=== PATIENT | male | born 1960 | race Caucasian/White ===

== ENCOUNTER 2018-12-26 09:32 | Emergency (ER) | payer OTHER ==
[~2018-12-26] VITALS: Ht 175.3 cm; Wt 99.8 kg
[2018-12-26] MEDS ORDERED: NS IV 1000 ML 1,000 ML IV STA (09:46)
[2018-12-26 09:52] LABS: BASOPHILS % (AUTO) 0 % (0-10); EOSINOPHILS # (AUTO) 0.1 10^3/uL (0.0-0.3); EOSINOPHILS % (AUTO) 1 % (0-10); HEMATOCRIT 43 % (40-54); HEMOGLOBIN 14.4 G/DL (13.3-17.7); LYMPHOCYTES % (AUTO) 11 % (12-44); MEAN CORPUSCULAR HEMOGLOBIN 30 PG (25-34); MEAN CORPUSCULAR HGB CONC 33 G/DL (32-36); MEAN CORPUSCULAR VOLUME 90 FL (80-99); MEAN PLATELET VOLUME 10.5 FL (7.4-10.4); MONOCYTES # (AUTO) 0.9 X 10^3 (0.0-1.0); MONOCYTES % (AUTO) 10 % (0-12); NEUTROPHILS # (AUTO) 6.5 X 10^3 (1.8-7.8); NEUTROPHILS % (AUTO) 77 % (42-75); PLATELET COUNT 260 10^3/uL (130-400); RED CELL DISTRIBUTION WIDTH 13.3 % (10.0-14.5); WHITE BLOOD COUNT 8.4 10^3/uL (4.3-11.0)
[2018-12-26 09:55] LABS: BILIRUBIN,URINE NEGATIVE (NEGATIVE); CLARITY,URINE CLEAR; COLOR,URINE YELLOW; GLUCOSE, URINE (UA) NEGATIVE (NEGATIVE); KETONES,URINE NEGATIVE (NEGATIVE); LEUKOCYTE ESTERASE ,URINE 1+ (NEGATIVE); NITRITE,URINE NEGATIVE (NEGATIVE); PH,URINE 5 (5-9); PROTEIN,URINE 2+ (NEGATIVE); UROBILINOGEN,URINE NORMAL (NORMAL)
[2018-12-26] MEDS ORDERED: KETOROLAC 30 MG/ML VIAL IVP STA (09:57)
[2018-12-26] MEDS ORDERED: fentaNYL INJECTION 100 MCG/2 ML AMP IVP STA (09:57)
[2018-12-26] MEDS ORDERED: ONDANSETRON 4 MG/2 ML (SDV) Z0FRAN IVP ONE (10:00)
[2018-12-26 10:04] LABS: AMORPHOUS SEDIMENT,UR RARE AMOR URATES /LPF; BACTERIA,URINE TRACE /HPF; RBC,URINE >100 /HPF; SQUAMOUS EPITHELIAL CELL,UR 0-2 /HPF; WBC,URINE 0-2 /HPF
--- NOTE | 2018-12-26 10:04 | ED Abdominal Pain ---
General Chief Complaint: Abdominal/GI Problems Stated Complaint: ABD PAIN Nursing Triage Note: Patient ambulatory to ER with spouse with complaint of right lower quadrant abdominal pain that began this morning upon waking up. Patient describes the pain as sharp. Patient states he has had one episode of vomiting this morning. Sepsis Screen: No Definite Risk Source of Information: Patient Exam Limitations: No Limitations History of Present Illness Date Seen by Provider: Dec 26, 2018 Time Seen by Provider: 09:45 Initial Comments Here with right lower quadrant abdominal pain onset this morning a few hours ago when he woke up. Pain has persisted. Does state that it radiates down to his groin. States that he is urinating less. No problems with bowel movements. Denies blood in the stool or urine. Denies blood in his vomit as he vomited one time. Has had one cup of coffee this morning but otherwise has not ate or drink anything. Denies fevers. Timing/Duration: 1-3 Hours Severity/Quality: Moderate Location: RLQ Radiation: Groin Activities at Onset: None Modifying Factors: Worsens With Movement; Improves With Resting Associated Symptoms: No Back Pain, No Chest Pain, No Fever/Chills; Nausea/Vomiting; No Shortness of Air Allergies and Home Medications Allergies Coded Allergies: No Known Drug Allergies (Unverified , 12/26/18) Home Medications Lisinopril 20 Mg Tablet, 20 MG PO DAILY, (Reported) Patient Home Medication List Home Medication List Reviewed: Yes Review of Systems Review of Systems Constitutional: no symptoms reported EENTM: No Symptoms Reported Respiratory: No Symptoms Reported Cardiovascular: No Symptoms Reported Gastrointestinal: See HPI, Abdominal Pain, Nausea, Vomiting Genitourinary: No Symptoms Reported Musculoskeletal: no symptoms reported Skin: No lesions, No rash Psychiatric/Neurological: No Symptoms Reported All Other Systems Reviewed Negative Unless Noted: Yes Past Esfiunb-Xqjplr-Vniwgb Hx Past Med/Social Hx: Reviewed Nursing Past Med/Soc Hx Patient Social History Alcohol Use: Regular Use Number of Drinks Today: 0 Alcohol Beverage of Choice: Beer Recreational Drug Use: No Type Used: Smokeless Tobacco 2nd Hand Smoke Exposure: No Recent Foreign Travel: No Contact w/Someone Who Travel: No Recent Infectious Disease Expo: No Physical Abuse: No Sexual Abuse: No Mistreated: No Fear: No Past Medical History Surgeries: No Respiratory: No Neurological: No Family Medical History Reviewed Nursing Family Hx Physical Exam Vital Signs Vital Signs - First Documented 12/26/18 09:32 Temp 96.2 Pulse 66 Resp 16 B/P (MAP) 159/108 (125) Pulse Ox 97 O2 Delivery Room Air Capillary Refill : Less Than 3 Seconds Height/Weight/BMI Height: 5'9.00" Weight: 220lbs. oz. 99.986075ei; BMI Method:Actual General Appearance: WD/WN, mild distress HEENT: PERRL/EOMI, pharynx normal Neck: full range of motion, supple Respiratory: lungs clear, normal breath sounds Cardiovascular: regular rate, rhythm, no murmur Gastrointestinal: soft, guarding (Right Lower quadrant), tenderness Extremities: non-tender, normal inspection Back: normal inspection, no CVA tenderness, no vertebral tenderness Neurologic/Psychiatric: alert, oriented x 3 Skin: normal color, warm/dry Progress/Results/Core Measures Results/Orders Lab Results Laboratory Tests Test 12/26/18 09:40 12/26/18 09:41 Range/Units Urine Color YELLOW Urine Clarity CLEAR Urine pH 5 5-9 Urine Specific [place] 1.030 H 1.016-1.022 Urine Protein 2+ H NEGATIVE Urine Glucose (UA) NEGATIVE NEGATIVE Urine Ketones NEGATIVE NEGATIVE Urine Nitrite NEGATIVE NEGATIVE Urine Bilirubin NEGATIVE NEGATIVE Urine Urobilinogen NORMAL NORMAL MG/DL Urine Leukocyte Esterase 1+ H NEGATIVE Urine RBC (Auto) 5+ H NEGATIVE Urine RBC >100 H /HPF Urine WBC 0-2 /HPF Urine Squamous Epithelial Cells 0-2 /HPF Urine Crystals PRESENT H /LPF Urine Amorphous Sediment RARE BAENA URATES H /LPF Urine Bacteria TRACE /HPF Urine Casts NONE /LPF Urine Mucus MODERATE H /LPF Urine Culture Indicated NO White Blood Count 8.4 4.3-11.0 10^3/uL Red Blood Count 4.81 4.35-5.85 10^6/uL Hemoglobin 14.4 13.3-17.7 G/DL Hematocrit 43 40-54 % Mean Corpuscular Volume 90 80-99 FL Mean Corpuscular Hemoglobin 30 25-34 PG Mean Corpuscular Hemoglobin Concent 33 32-36 G/DL Red Cell Distribution Width 13.3 10.0-14.5 % Platelet Count 260 130-400 10^3/uL Mean Platelet Volume 10.5 H 7.4-10.4 FL Neutrophils (%) (Auto) 77 H 42-75 % Lymphocytes (%) (Auto) 11 L 12-44 % Monocytes (%) (Auto) 10 0-12 % Eosinophils (%) (Auto) 1 0-10 % Basophils (%) (Auto) 0 0-10 % Neutrophils # (Auto) 6.5 1.8-7.8 X 10^3 Lymphocytes # (Auto) 1.0 1.0-4.0 X 10^3 Monocytes # (Auto) 0.9 0.0-1.0 X 10^3 Eosinophils # (Auto) 0.1 0.0-0.3 10^3/uL Basophils # (Auto) 0.0 0.0-0.1 10^3/uL Sodium Level 137 135-145 MMOL/L Potassium Level 3.9 3.6-5.0 MMOL/L Chloride Level 105 98-107 MMOL/L Carbon Dioxide Level 21 21-32 MMOL/L Anion Gap 11 5-14 MMOL/L Blood Urea Nitrogen 18 7-18 MG/DL Creatinine 1.20 0.60-1.30 MG/DL Estimat Glomerular Filtration Rate > 60 BUN/Creatinine Ratio 15 Glucose Level 127 H 70-105 MG/DL Calcium Level 9.6 8.5-10.1 MG/DL Corrected Calcium 8.5-10.1 MG/DL Total Bilirubin 0.9 0.1-1.0 MG/DL Aspartate Amino Transf (AST/SGOT) 14 5-34 U/L Alanine Aminotransferase (ALT/SGPT) 19 0-55 U/L Alkaline Phosphatase 88 40-136 U/L C-Reactive Protein High Sensitivity 0.23 0.00-0.50 MG/DL Total Protein 7.8 6.4-8.2 GM/DL Albumin 4.6 H 3.2-4.5 GM/DL My Orders Orders - BRIAN WILLSON MD Cbc With Automated Diff (12/26/18 09:46) Comprehensive Metabolic Panel (12/26/18 09:46) Hs C Reactive Protein (12/26/18 09:46) Ua Culture If Indicated (12/26/18 09:46) Ondansetron Injection (Zofran Injectio (12/26/18 10:00) Ns Iv 1000 Ml (Sodium Chloride 0.9%) (12/26/18 09:46) Ed Iv/Invasive Line Start (12/26/18 09:46) Fentanyl Injection (Sublimaze Injection (12/26/18 09:57) Ketorolac Injection (Toradol Injection) (12/26/18 09:57) Ct Abd/Pelvis Wo(Kidney Stone) (12/26/18 10:12) Abdomen/Kub 1view (12/26/18 10:52) Medications Given in ED Current Medications Medications Dose Ordered Sig/Praveen Route Start Time Stop Time Status Last Admin Dose Admin Ondansetron HCl 4 mg ONCE ONCE IVP 12/26/18 10:00 12/26/18 10:01 DC 12/26/18 09:58 4 MG Vital Signs/I&O 12/26/18 09:32 Temp 96.2 Pulse 66 Resp 16 B/P (MAP) 159/108 (125) Pulse Ox 97 O2 Delivery Room Air Blood Pressure Mean: 125 Progress Progress Note : Progress Note Seen and evaluated. IV, labs, UA, normal saline 1 L bolus, Zofran 4 mg IV, Toradol 30 mg IV and fentanyl 50 g IV ordered. Anticipate CT scan pending UA results. Monitor patient. 1104: CT does show 4 mm stone right mid/distal ureter. Pain is controlled. No findings of infection. We will go ahead and get x-ray of the abdomen and repair for discharge home. Patient feels much more comfortable and feels he can tolerate home now. Discharge home with return precautions. Patient and family verbalize understanding instructions and agreement with plan. Diagnostic Imaging Diagonstic Imaging: CT Plain Films/CT/US/NM/MRI: abdomen, pelvis Comments [facility], [place] NAME: ARELY VELAZCO [facility] REC#: [id number] PT STATUS: REG ER : 1960 PHYSICIAN: BRIAN WILLSON MD ADMIT DATE: 12/26/18/ER Draft Date of Exam:12/26/18 CT ABD/PELVIS WO(KIDNEY STONE) PROCEDURE: CT urinary tract, rule out kidney stone. TECHNIQUE: Multiple contiguous axial images were obtained through the abdomen and pelvis without the use of intravenous contrast. Auto Exposure Controls were utilized during the CT exam to meet ALARA standards for radiation dose reduction. INDICATION: Right lower quadrant abdominal pain that began this morning. COMPARISON: There are no prior studies available for comparison. FINDINGS: Imaging through the lung bases does show multiple tiny subpleural nodules in the bilateral lower lobes. A nodule on the left is approximately 4 mm. Numerous additional 2-3 mm nodules are also present. No discrete liver mass is identified. The gallbladder is unremarkable. No biliary ductal dilatation is seen. The pancreas and spleen are unremarkable. No adrenal mass is detected. The left kidney is unremarkable. The right kidney does show some perinephric inflammatory stranding. There is also hydroureteronephrosis. The dilated right ureter is traced into the upper to mid pelvis where there is an approximately 4 mm calculus. The ureter distal to this level is of normal caliber. No bladder calculi are seen. The left ureter is unremarkable. The aorta is nonaneurysmal. The bowel loops are of normal caliber. There is no ascites. The bony structures are nonacute. IMPRESSION: 1. There is a 4 mm calculus in the mid to distal right ureter producing moderate hydroureteronephrosis. 2. There are bibasilar subpleural pulmonary micronodules, stable when compared to the prior CT chest dating back to 2010. Dictated on workstation # [id number] Dict: 12/26/18 1034 Trans: 12/26/18 1047 [id number] Interpreted by: LORRAINE SONG MD Electronically signed by: Reviewed: Reviewed by Me Departure Impression Primary Impression: Right ureteral stone Disposition: 01 HOME, SELF-CARE Condition: Improved Departure-Patient Inst. Decision time for Depature: 11:07 Referrals: URI DA SILVA MD (PCP) Primary Care Physician RONALD MEDINA MD Patient Instructions: Kidney Stones (DC) Add. Discharge Instructions: All discharge instructions reviewed with patient and/or family. Voiced understanding. Drink plenty of fluids. You may take ibuprofen 800 mg every 8 hours as needed for pain and you should do that scheduled for 3 days and then as needed thereafter. Call and make appointment with Dr. Medina. You may take the prescribed pain medicine or you may take Tylenol/acetaminophen 1000 mg every 8 hours as needed for pain. Do not take both at the same time as they both have acetaminophen). Do not exceed 4000 mg of acetaminophen in 24 hours. Return for worse pain, fever, vomiting, weakness, breathing problems or other concerns as needed. Scripts Hydrocodone Bit/Acetaminophen (Hydrocodone/Acetaminophen 5/325mg Tablet) 1 Tab Tab 1 EACH PO Q4-6HR PRN for PAIN-MODERATE MDD 10 for 3 Days, #10 TAB 0 Refills Prov: BRIAN WILLSON MD 12/26/18 Cephalexin (Cephalexin) 500 Mg Tablet 500 MG PO BID, #14 TAB 0 Refills Prov: BRIAN WILLSON MD 12/26/18 Copy Copies To 1: RONALD MEDINA MD, TIMOTHY D MD Dec 26, 2018 10:04
[2018-12-26] MEDS ORDERED: LISI20TA PO (10:11)
--- NOTE | 2018-12-26 10:12 | NUR ---
After Fentanyl given patient is sleeping. Oxygen saturation 86% on room air. Patient placed on oxygen at 2 LPM via nasal cannula and oxygen saturation rises to 97%.
[2018-12-26 10:15] LABS: ALANINE AMINOTRANSFERASE 19 U/L (0-55); ALBUMIN 4.6 GM/DL (3.2-4.5); ALKALINE PHOSPHATASE 88 U/L (40-136); BILIRUBIN,TOTAL 0.9 MG/DL (0.1-1.0); BUN/CREATININE RATIO 15; CALCIUM 9.6 MG/DL (8.5-10.1); CARBON DIOXIDE 21 MMOL/L (21-32); CHLORIDE 105 MMOL/L (98-107); GFR ESTIMATED > 60; GLUCOSE 127 MG/DL (70-105); POTASSIUM 3.9 MMOL/L (3.6-5.0); SODIUM 137 MMOL/L (135-145); TOTAL PROTEIN 7.8 GM/DL (6.4-8.2)
--- NOTE | 2018-12-26 10:33 | NUR ---
Patient denies any pain. He is resting quietly in bed. Spouse at bedside.
--- NOTE | 2018-12-26 10:47 | Diagnostic Imaging Report ---
PROCEDURE: CT urinary tract, rule out kidney stone. TECHNIQUE: Multiple contiguous axial images were obtained through the abdomen and pelvis without the use of intravenous contrast. Auto Exposure Controls were utilized during the CT exam to meet ALARA standards for radiation dose reduction. INDICATION: Right lower quadrant abdominal pain that began this morning. COMPARISON: There are no prior studies available for comparison. FINDINGS: Imaging through the lung bases does show multiple tiny subpleural nodules in the bilateral lower lobes. A nodule on the left is approximately 4 mm. Numerous additional 2-3 mm nodules are also present. No discrete liver mass is identified. The gallbladder is unremarkable. No biliary ductal dilatation is seen. The pancreas and spleen are unremarkable. No adrenal mass is detected. The left kidney is unremarkable. The right kidney does show some perinephric inflammatory stranding. There is also hydroureteronephrosis. The dilated right ureter is traced into the upper to mid pelvis where there is an approximately 4 mm calculus. The ureter distal to this level is of normal caliber. No bladder calculi are seen. The left ureter is unremarkable. The aorta is nonaneurysmal. The bowel loops are of normal caliber. There is no ascites. The bony structures are nonacute. IMPRESSION: 1. There is a 4 mm calculus in the mid to distal right ureter producing moderate hydroureteronephrosis. 2. There are bibasilar subpleural pulmonary micronodules, stable when compared to the prior CT chest dating back to 2010. Dictated by: Dictated on workstation # [id number]
[2018-12-26] MEDS ORDERED: ACHD5005 PO (11:10)
[2018-12-26] MEDS ORDERED: CEPH500T PO (11:10)
[2018-12-26 11:32] VITALS: BP 103/65
--- NOTE | 2018-12-26 11:32 | Diagnostic Imaging Report ---
INDICATION: Right-sided kidney stone. TIME OF EXAM: 11:17 a.m. COMPARISON: Correlation is made with CT performed earlier same day. FINDINGS: Right ureteral calculus is difficult to see on plain film. This calculus overlies the right portion of the sacrum on recent CT. No other radiopaque urinary tract calculi are seen. Bowel gas pattern is unremarkable. IMPRESSION: Right ureteral calculus noted on CT is difficult to visualize radiographically due to overlying structures. No other abnormality is seen. Dictated by: Dictated on workstation # [id number]
--- NOTE | 2018-12-26 11:33 | NUR ---
Patient given urine strainer, urinal and sterile specimen cup with instructions to strain urine to catch the stone. Patient verbalized understanding.
== END 2018-12-26 11:34 | disposition home or self-care (01) ==
LOC: EDUNIT# 09:32 → ER 09:33
DX: N13.2 Hydronephrosis with renal and ureteral calculous obstruction (principal)
CPT/HCPCS: 36415; 74018; 74176; 80053; 81000; 85025; 86141

== ENCOUNTER 2018-12-28 08:23 | Outpatient (RCR) | payer OTHER | END 2018-12-29 08:00 | disposition home or self-care (01) | PROVIDERS: ATTEND Nurse Practitioner Family | DX: M75.01 Adhesive capsulitis of right shoulder (principal); Z98.890 Other specified postprocedural states ==

== ENCOUNTER → 2018-12-28 | Outpatient (CLI) | payer OTHER ==
[~2018-12-28] MED LIST: ACHD5005 PO; CEPH500T PO; LISI20TA PO
--- NOTE | 2018-12-28 15:53 | Diagnostic Imaging Report ---
INDICATION: Right ureteral stone. Correlation is made with prior exam from 12/26/2018. FINDINGS: Bowel gas pattern is unremarkable. Right ureteral calculus noted on CT is not appreciated on plain film. No urinary tract calculi are detected. IMPRESSION: No definite radiopaque urinary tract calculi are identified. Dictated by: Dictated on workstation # [id number]
== END ==
LOC: RAD 15:23
PROVIDERS: ATTEND Urology
DX: N20.1 Calculus of ureter (principal)
CPT/HCPCS: 74018

== ENCOUNTER → 2019-01-17 | Outpatient (CLI) | payer OTHER ==
[~2019-01-17] MED LIST changes: +LOSA100T57 PO
== END ==
LOC: CARD 07:06
PROVIDERS: ATTEND Family Medicine
DX: Z82.49 Family history of ischemic heart disease and other diseases of the circulatory system (principal)
CPT/HCPCS: 93017

== ENCOUNTER 2019-02-03 09:18 | Outpatient (RCR) | payer BC ==
[~2019-02-03 09:18] MED LIST changes: -LOSA100T57 PO
[2019-02-03] MEDS ORDERED: LOSA100T57 PO (12:38)
== END 2019-02-03 14:41 | disposition home or self-care (01) ==
PROVIDERS: ATTEND Nurse Practitioner Family
DX: Z98.890 Other specified postprocedural states (principal)

== ENCOUNTER 2019-02-03 12:00 | Outpatient (CLI) | payer OTHER ==
[~2019-02-03] VITALS: Ht 175.3 cm; Wt 99.8 kg
[2019-02-03] MEDS ORDERED: LOSA100T57 PO (12:38)
== END 2019-02-03 13:03 | disposition home or self-care (01) ==
LOC: PREOP 13:03
PROVIDERS: ATTEND Surgery
DX: Z01.818 Encounter for other preprocedural examination (principal)

== ENCOUNTER 2019-02-07 07:00 | Day surgery (SDC) | payer OTHER ==
[~2019-02-07] VITALS: Ht 175.3 cm; Wt 99.8 kg
[~2019-02-07 07:00] MED LIST changes: +LACTATED RINGERS 1,000 ML IV ONE; +LOSA100T57 PO
[2019-02-07] MEDS ORDERED: ceFAZolin 2 GM/50 ML NS 50 ML ONE (07:19)
[2019-02-07] MEDS ORDERED: MIDAZOLAM 2 MG/2 ML (VERSED) VIAL ONE (07:25)
[2019-02-07] MEDS ORDERED: proPOfol 200 MG/20 ML (DIPRIVAN) VIAL IV ONE ×2 (07:25→08:20)
[2019-02-07] MEDS ORDERED: LACTATED RINGERS 1,000 ML IV STA (07:32)
[2019-02-07 07:36] VITALS: BP 115/64
[2019-02-07] MEDS ORDERED: CATHETER FLUSH 10 ML SYR IV PRN (07:45)
[2019-02-07] MEDS ORDERED: ANCEF 2 GM/NS 50 ML IVPB IV ONE (07:45)
--- NOTE | 2019-02-07 08:07 | Progress Note-Pre Operative ---
Pre-Operative Progress Note H&P Reviewed The H&P was reviewed, patient examined and no changes noted. Date Seen by Provider: Feb 07, 2019 Time Seen by Provider: 07:31 Date H&P Reviewed: Feb 07, 2019 Time H&P Reviewed: 07:31 Pre-Operative Diagnosis: screening colonoscopy ALAN RICHARDSON DO Feb 07, 2019 08:07
[2019-02-07 08:30] VITALS: BP 126/71
--- NOTE | 2019-02-07 08:33 | Progress Note-Post Operative ---
Post-Operative Progess Note Surgeon (s)/Satin Finisher (s) Surgeon ALAN RICHARDSON DO Satin Finisher: na Pre-Operative Diagnosis screening colonoscopy Post-Operative Diagnosis colon polyps Procedure & Operative Findings Date of Procedure 02/07/19 Procedure Performed/Findings colonoscopy c snare polypectomy x 2 and hot bx polypectomy x 1 Anesthesia Type per mda Estimated Blood Loss Estimated blood loss (mL): none Specimens/Packing Specimens Removed colon polyps x 3 ALAN RICHARDSON DO Feb 07, 2019 08:32
--- NOTE | 2019-02-07 08:38 | Discharge Inst-Simple/Standard ---
Discharge Inst-Standard Patient Instructions/Follow Up Plan of Care/Instructions/FU: 2 weeks Kristine Activity as Tolerated: Yes Discharge Diet: Regular Diet ALAN RICHARDSON DO Feb 07, 2019 08:38
[2019-02-07 09:00] VITALS: BP 127/84
[2019-02-07 09:15] VITALS: BP 127/84
--- NOTE | 2019-02-07 09:56 | Anesthesia-General Post-Op ---
MAC Patient Condition Mental Status/LOC: Same as Preop Cardiovascular: Satisfactory Nausea/Vomiting: Absent Respiratory: Satisfactory Pain: Controlled Complications: Absent Post Op Complications Complications None Follow Up Care/Instructions Patient Instructions None needed. Anesthesiology Discharge Order Discharge Order Patient is doing well, no complaints, stable vital signs, no apparent adverse anesthesia problems. No complications reported per nursing. FABIAN OWUSU CRNA Feb 07, 2019 09:56
--- NOTE | 2019-02-07 13:49 | OPERATIVE REPORT ---
DATE OF SERVICE: 02/07/2019 PREOPERATIVE DIAGNOSIS: Screening colonoscopy. POSTOPERATIVE DIAGNOSIS: Colon polyps. PROCEDURE PERFORMED: Colonoscopy with snare polypectomy x2 and hot biopsy polypectomy x2. SURGEON: Alan Carmona DO ANESTHESIA: Per MDA. ESTIMATED BLOOD LOSS: None. COMPLICATIONS: None. INDICATIONS: The patient is a 58-year-old male, needing screening colonoscopy. He understands risks and benefits of procedure and wished to proceed with procedure. Consent was signed in the chart. DESCRIPTION OF PROCEDURE: The patient was taken to the endoscopy suite, placed in left lateral recumbent position. Timeout was performed. Rectal exam was performed. There were no palpable polyps, mass or ulcerations. The scope was inserted in the rectum, advanced all the way to the cecum with minimal difficulty. Prep was adequate. Scope was then slowly retracted back. There were no polyps, mass or ulceration of the cecum. In the ascending colon, a small polyp was present, which snare polypectomy was performed. Scope was continued to be slowly retracted back. There were no other polyps, masses or ulcerations within the remainder of the ascending, transverse colon. In the descending colon, there were 2 small polyps, which hot biopsy polypectomy was performed. These were obtained in the same specimen cup. Scope was then continuously retracted back. There were no polyps, masses or ulcerations within the remainder of the descending and sigmoid colon. In the rectum, there was another small polyp, which snare polypectomy was performed. Scope was then continuously retracted back further in the rectum and then retroflexed. No other pathology noted. Scope was returned to its normal position, slowly withdrawn until completely removed. The patient tolerated procedure well without any complications, taken to recovery room in stable condition. RECOMMENDATIONS: The patient will need repeat colonoscopy in 5 years. Any issues before that can be seen at that time and follow up on pathology in 2 weeks. Job ID: [id number] DocumentID: [id number] Dictated Date: 02/07/2019 08:37:02 Spar Machine Operator Helper Date: 02/07/2019 13:48:47 Dictated By: ALAN CARMONA DO [facility]ITAL[facility]
== END 2019-02-07 09:15 | disposition home or self-care (01) ==
LOC: ENDO 07:00
PROVIDERS: ATTEND Surgery
DX: Z12.11 Encounter for screening for malignant neoplasm of colon (principal); D12.2 Benign neoplasm of ascending colon; K63.5 Polyp of colon; I10 Essential (primary) hypertension; F17.290 Nicotine dependence, other tobacco product, uncomplicated; Z68.33 Body mass index [BMI] 33.0-33.9, adult; Z79.899 Other long term (current) drug therapy; Z82.49 Family history of ischemic heart disease and other diseases of the circulatory system; Z83.42 Family history of familial hypercholesterolemia

== ENCOUNTER 2022-09-25 09:08 | Outpatient (RCR) | payer BC ==
[~2022-09-25 09:08] MED LIST changes: -LACTATED RINGERS 1,000 ML IV ONE
== END 2022-09-27 | disposition home or self-care (01) ==
PROVIDERS: ATTEND Orthopaedic Surgery
DX: M17.11 Unilateral primary osteoarthritis, right knee (principal); I10 Essential (primary) hypertension; Z96.651 Presence of right artificial knee joint

== ENCOUNTER → 2022-10-28 | Outpatient (RCR) | payer BC ==
[~2022-10-28] MED LIST changes: -LOSA100T57 PO; +LOSA100T58 PO
== END | disposition home or self-care (01) ==
PROVIDERS: ATTEND Orthopaedic Surgery
DX: Z47.1 Aftercare following joint replacement surgery (principal); I10 Essential (primary) hypertension; Z96.651 Presence of right artificial knee joint

== ENCOUNTER 2022-10-30 10:42 | Outpatient (RCR) | payer BC ==
[~2022-10-30 10:42] MED LIST changes: +LOSA100T57 PO; -LOSA100T58 PO
== END 2022-10-30 11:21 | disposition home or self-care (01) ==
PROVIDERS: ATTEND Orthopaedic Surgery
DX: M17.11 Unilateral primary osteoarthritis, right knee (principal); Z96.651 Presence of right artificial knee joint

== ENCOUNTER → 2022-11-10 | Outpatient (CLI) | payer BC ==
[~2022-11-10] MED LIST changes: -LOSA100T57 PO; +LOSA100T58 PO
--- NOTE | 2022-11-10 15:12 | Diagnostic Imaging Report ---
PROCEDURE: US right lower extremity venous. TECHNIQUE: Multiple real-time grayscale images were obtained over the right lower extremity in various projections. Additional spectral analysis and color Doppler duplex images were also obtained. INDICATION: Right leg swelling. There is no evidence of right lower extremity DVT. Right lower extremity deep venous system shows normal compressibility with normal response to augmentation and Valsalva. No fluid collection or mass is detected. IMPRESSION: No evidence of right lower extremity DVT. Dictated by: Dictated on workstation # [id number]
== END ==
LOC: RAD 14:00
PROVIDERS: ATTEND Emergency Medicine
DX: M25.561 Pain in right knee (principal); R22.41 Localized swelling, mass and lump, right lower limb; L95.9 Vasculitis limited to the skin, unspecified